=== PATIENT | male | born 1960 | race Caucasian/White ===

== ENCOUNTER 2018-02-20 12:11 | Emergency (ER) | payer OTHER ==
[2018-02-20] MEDS ORDERED: Ondansetron 4 MG Tab.DIS PO ONE (12:25)
[2018-02-20] MEDS ORDERED: HYDROmorphone 2 MG/ML SDV IM ONE (12:25)
--- NOTE | 2018-02-20 12:28 | EDM.PDOC ---
ED HPI GENERAL MEDICAL PROBLEM - General Chief Complaint: Back Pain or Injury Stated Complaint: back pain,sob Time Seen by Provider: 02/20/18 12:12 Source of Information: Reports: Patient History Limitations: Reports: No Limitations - History of Present Illness INITIAL COMMENTS - FREE TEXT/NARRATIVE: History of present illness: []Patient started feeling right-sided mid back pain this morning that feels like a severe muscle spasm. Patient says it makes it hard for him to breathe although he is not short of breath. Patient denies any fevers, chills. Review of systems: As per history of present illness and below otherwise all systems reviewed and negative. Past medical history: As per history of present illness and as reviewed below otherwise noncontributory. Surgical history: As per history of present illness and as reviewed below otherwise noncontributory. Social history: No reported history of drug or alcohol abuse. Family history: As per history of present illness and as reviewed below otherwise noncontributory. Physical exam: General: Well developed, well nourished in NAD HEENT: Atraumatic, normocephalic, pupils reactive, negative for conjunctival pallor or scleral icterus, mucous membranes moist, throat clear, neck supple, nontender, trachea midline. Lungs: Clear to auscultation, breath sounds equal bilaterally, chest nontender. Heart: S1S2, regular, negative for clicks, rubs, or JVD. Abdomen: Soft, nondistended, nontender. Negative for masses or hepatosplenomegaly. Negative for costovertebral tenderness. Right back shows linear area of erythematous rash without using Pelvis: Stable nontender. Genitourinary: Deferred. Rectal: Deferred. Extremities: Atraumatic, negative for cords or calf pain. Neurovascular unremarkable. Neuro: Awake, alert, oriented. Cranial nerves II through XII unremarkable. Cerebellum unremarkable. Motor and sensory unremarkable throughout. Exam nonfocal. Diagnostics: []Chest x-ray shows mild effusion of left Therapeutics: []Dilaudid, Zofran given in the ED Impression: []Herpes zoster Plan: []Acyclovir, tramadol for pain (primary care Definitive disposition and diagnosis as appropriate pending reevaluation and review of above. Right Middle Back Pain Score (Numeric/FACES): 7 - Related Data Allergies Allergy/AdvReac Type Severity Reaction Status Date / Time No Known Allergies Allergy Verified 02/20/18 12:28 Home Meds: Home Meds Lisinopril/Hydrochlorothiazide [Lisinopril-Hctz 20-25 mg Tab] 1 tab PO DAILY [History] Acyclovir 800 mg PO 5XDAY #50 tablet 02/20/18 [Rx] traMADol HCl [Tramadol HCl] 50 mg PO Q6H PRN #16 tablet 02/20/18 [Rx] Past Medical History HEENT History: Reports: None Cardiovascular History: Reports: Hypertension Respiratory History: Reports: None Gastrointestinal History: Reports: None Genitourinary History: Reports: None Neurological History: Reports: None Psychiatric History: Reports: None Endocrine/Metabolic History: Reports: Obesity/BMI 30+ Hematologic History: Reports: None Immunologic History: Reports: None Oncologic (Cancer) History: Reports: None Dermatologic History: Reports: None - Infectious Disease History Infectious Disease History: Reports: Chicken Pox, Mumps - Past Surgical History Musculoskeletal Surgical History: Reports: Shoulder Surgery Social & Family History - Family History Family Medical History: Noncontributory ED ROS GENERAL - Review of Systems Review Of Systems: See Below (See history of present illness) ED EXAM, SKIN/RASH Exam: See Below (See history of present illness) Course - Vital Signs Last Recorded V/S: Last Vital Signs Temp 98.6 F 02/20/18 12:22 Pulse 88 02/20/18 12:22 Resp 18 02/20/18 12:22 BP 129/83 02/20/18 12:22 Pulse Ox 96 02/20/18 12:22 - Orders/Labs/Meds Orders: Active Orders 24 hr Category Date Time Status Chest 1V Frontal [CR] Stat Exams 02/20/18 12:42 Taken Meds: Medications Discontinued Medications Generic Name Dose Route Start Last Admin Trade Name Freq PRN Reason Stop Dose Admin Hydromorphone HCl 1 mg 02/20/18 12:25 02/20/18 12:32 Dilaudid IM 02/20/18 12:26 1 mg ONETIME ONE Administration Ondansetron HCl 4 mg 02/20/18 12:25 02/20/18 12:33 Zofran Odt PO 02/20/18 12:26 4 mg ONETIME ONE Administration Departure - Departure Time of Disposition: 13:04 Disposition: Home, Self-Care 01 Condition: Good Clinical Impression: Herpes zoster Qualifiers: Herpes zoster complications: without complications Qualified Code(s): B02.9 - Zoster without complications - Discharge Information Prescriptions: Acyclovir 800 mg PO 5XDAY #50 tablet traMADol HCl [Tramadol HCl] 50 mg PO Q6H PRN #16 tablet PRN Reason: Pain Referrals: PCP,Unknown [Primary Care Provider] - Forms: ED Department Discharge Additional Instructions: The following information is given to patients seen in the emergency department who are being discharged to home. This information is to outline your options for follow-up care. We provide all patients seen in our emergency department with a follow-up referral. The need for follow-up, as well as the timing and circumstances, are variable depending upon the specifics of your emergency department visit. If you don't have a primary care physician on staff, we will provide you with a referral. We always advise you to contact your personal physician following an emergency department visit to inform them of the circumstance of the visit and for follow-up with them and/or the need for any referrals to a consulting specialist. The emergency department will also refer you to a specialist when appropriate. This referral assures that you have the opportunity for follow-up care with a specialist. All of these measure are taken in an effort to provide you with optimal care, which includes your follow-up. Under all circumstances we always encourage you to contact your private physician who remains a resource for coordinating your care. When calling for follow-up care, please make the office aware that this follow-up is from your recent emergency room visit. If for any reason you are refused follow-up, please contact the [facility] Emergency Department at and asked to speak to the emergency department charge nurse. Acyclovir and tramadol for pain follow-up with PMD this week [facility] [address] [place] [id number] - My Orders Last 24 Hours: My Active Orders 02/20/18 12:42 Chest 1V Frontal [CR] Stat - Assessment/Plan Last 24 Hours: My Active Orders 02/20/18 12:42 Chest 1V Frontal [CR] Stat
[2018-02-20 13:47] VITALS: BP 120/87
--- NOTE | 2018-02-22 18:53 | CR ---
EXAM DATE: 02/20/18 PATIENT'S AGE: 57 Patient: YUNI LEWIS Facility: [place], [place] Site . Site : [id number] Study: XRay Chest [id number]/[id number] 1:09:56 PM Ordering Physician: Britton Aiken Final Report: INDICATION: Pain. Short of breath. TECHNIQUE: Portable upright AP chest. COMPARISON: None. FINDINGS: Heart size is within normal limits. No appreciable mediastinal or hilar mass. Normal pulmonary vasculature. There are right basilar airspace opacities with a trace right pleural effusion. Blunting of the left costophrenic sulcus suggests a trace pleural effusion. The left lung appears clear. No pneumothorax. IMPRESSION: Trace pleural effusions, right greater than left, with right basilar changes which could be related to atelectasis or pneumonitis. Clinically correlate. Dictated by Jonathan Mercado MD @ 02/20/2018 2:05:12 PM Dictated by: Jonathan Mercado MD @ 02/20/2018 14:05:18 (Electronic Signature) Report Signed by Proxy. TEMO
== END 2018-02-20 13:35 | disposition home or self-care (01) ==
LOC: MW.ED 12:11
DX: B02.9 Zoster without complications (principal); I10 Essential (primary) hypertension; Z79.899 Other long term (current) drug therapy
CPT/HCPCS: 71045; 99283; A9270; J1170

== ENCOUNTER 2022-04-19 08:44 | Emergency (ER) | payer BC, OTHER ==
[2022-04-19 10:08] LABS: CARBON DIOXIDE,CO2 27.9 mmol/L (21.0-32.0); POTASSIUM,K 3.8 mmol/L (3.5-5.1)
[2022-04-19 10:25] VITALS: BP 120/70; PULSE 70
== END 2022-04-19 10:42 | disposition home or self-care (01) ==
LOC: MW.ED 08:44
DX: A69.20 Lyme disease, unspecified (principal); I10 Essential (primary) hypertension; E66.9 Obesity, unspecified; Z68.31 Body mass index [BMI] 31.0-31.9, adult; Z91.030 Bee allergy status; Z79.899 Other long term (current) drug therapy
CPT/HCPCS: 36415; 80053; 85027; 85652; 93005; 99283